=== PATIENT | male | born 1975 | race Caucasian/White ===

== ENCOUNTER → 2018-06-03 | Outpatient (CLI) | payer OTHER ==
[~2018-06-03] MED LIST: ADDERALL 20 MG20 M1 PO; AMBIEN 5 MG TABL5 M1 PO; ANDROGEL1.25 GM TOP; ASPIRIN PO; ATIVAN0.5 MG PO; MAXITROL EYE DRO5 ML OP; NEOSPORIN ANT70.8 GM TP; OXYCODONE PO; POLYMYXIN B/TMP10 ML OP
[2018-06-03 10:55] LABS: ABSOLUTE BASOPHILS 0.1 thou/uL (0.0-0.2); ABSOLUTE EOSINOPHILS 0.3 thou/uL (0.0-0.7); ABSOLUTE LYMPHOCYTES 0.7 thou/uL (0.8-5.3); ABSOLUTE MONOCYTES 0.5 thou/uL (0.0-1.2); ABSOLUTE NEUTROPHILS 5.5 thou/uL (1.6-8.1); BASOPHILS 1.1 %; EOSINOPHILS 4.8 %; HEMATOCRIT 44.9 % (42.0-52.0); HEMOGLOBIN 15.3 gm/dL (14.0-18.0); LYMPHOCYTES 10.4 %; MCH 29.8 pg (26.0-34.0); MCHC 34.1 g/dL (28.0-37.0); MCV 87.3 fL (80.0-100.0); MONOCYTES 6.4 %; MPV 7.2 fl. (7.2-11.1); NUCLEATED RBCS 0 /100WBC; PLATELET COUNT* 271 thou/uL (150-400); POLYS 77.3 %; RBC 5.14 mil/uL (4.50-6.00); RDW-CV 14.9 % (10.5-14.5); WBC 7.1 thou/uL (4.0-11.0)
[2018-06-03 11:16] LABS: ALBUMIN 3.7 g/dL (3.4-5.0); CALCIUM 8.6 mg/dL (8.5-10.1); CREATININE 1.6 mg/dL (0.6-1.3); POTASSIUM 4.1 mmol/L (3.5-5.1); TOTAL BILIRUBIN 0.5 mg/dL (<0.1-1.0); TOTAL PROTEIN 7.1 g/dL (6.4-8.2)
== END ==
LOC: M.LAB 10:44
PROVIDERS: Nurse Practitioner Adult Health
DX: K51.90 Ulcerative colitis, unspecified, without complications (principal); K92.1 Melena; R11.10 Vomiting, unspecified; R12 Heartburn

== ENCOUNTER 2020-07-15 20:54 | Emergency (ER) | payer OTHER ==
[~2020-07-15] VITALS: Ht 175.3 cm; Wt 90.7 kg
[2020-07-15] MEDS ORDERED: MUPIROCIN15 GM TOP (21:40)
[2020-07-15] MEDS ORDERED: AZITHROMYCIN 2250 MG PO (21:40)
[2020-07-15] MEDS ORDERED: APAP W/CODEINE1 TA2 PO (21:45)
[2020-07-15 21:59] VITALS: BP 160/70
== END 2020-07-15 22:00 | disposition home or self-care (01) ==
LOC: M.ERS 20:54
DX: L53.9 Erythematous condition, unspecified (principal); B95.7 Other staphylococcus as the cause of diseases classified elsewhere